=== PATIENT | male | born 1995 | race Caucasian/White ===

== ENCOUNTER 2017-08-29 00:19 | Emergency (ER) | payer BC, OTHER ==
[~2017-08-29] VITALS: Ht 185.4 cm; Wt 120.1 kg
[2017-08-29 00:22] VITALS: TEMP 36.8; Ht 185.4 cm; Wt 120.1 kg
[2017-08-29] MEDS ORDERED: DiphenhydrAMINE HCL 50 MG/ML VIAL IV STA (00:27)
[2017-08-29] MEDS ORDERED: FAMOTIDINE 20MG/5ML IV PUSH IV STA (00:27)
[2017-08-29] MEDS ORDERED: DEXAMETHASONE **PF** INJ 10 MG/ML VIAL IV ONE (00:30)
[2017-08-29 00:38] VITALS: O2SAT 98
[2017-08-29] MEDS ORDERED: ISOT1CAP7 PO (00:41)
--- NOTE | 2017-08-29 01:16 | EMERGENCY ROOM VISIT NOTE ---
History First contact with patient: 00:24 Chief Complaint: ALLERGIC REACTION Stated Complaint: ALLERGIC REACTION Nursing Triage Summary: Patient reports bilateral eye swelling that began approx 30 mins ago. Denies new food, medicine, or soaps. Denies shortness of breath or difficulty breathing. History of Present Illness The patient is a 22 year old male who presents to the Emergency Room with complaints of allergic reaction for the past hour. Patient complains of facial itching and swelling. No new food soaps or detergents.. Patient denies chest pain, dyspnea, throat tightness, tongue swelling, abdominal pain, vomiting, diarrhea. No history of similar symptoms in the past. No eye pain. Review of Systems An 10 system review of systems was completed with positives and pertinent negatives listed in the HPI. Past Medical/Surgical History Medical Problems: (1) adenoidectomy (2) Benign hypertension (3) Hydrocele of testis Family History FH: cancer FH: diabetes mellitus FH: gallbladder disease FH: heart disease FH: lung disease Social History Smoking Status: Never Smoker Alcohol Use: none Drug Use: none Marital Status: single Housing Status: lives with family Occupation Status: employed Current/Historical Medications Scheduled Isotretinoin (Myorisan), 40 MG PO BID Prednisone (Prednisone), 50 MG PO DAILY Physical Exam Vital Signs Date Time Temp Pulse Resp B/P (MAP) Pulse Ox O2 Delivery O2 Flow Rate FiO2 08/29/17 00:42 80 08/29/17 00:38 98 Room Air 08/29/17 00:38 98 Room Air 08/29/17 00:22 36.8 87 20 152/87 98 Room Air Physical Exam VITALS: Vitals are noted on the nurse's note and reviewed by myself. Vital signs hypertensive. GENERAL: Pleasant male, in no acute distress, nondiaphoretic, well-developed well-nourished. SKIN: Arms and face slightly erythematous that is blanchable most consistent with allergic reaction. The rest of the skin was without rashes, erythema, edema, or bruising. There is no tenting of the skin. Capillary reflex less than 2 seconds. HEAD: Normocephalic atraumatic. Face: Periorbital edema and erythema EARS: External auditory canals clear, tympanic membranes pearly elder without erythema or effusion bilaterally. EYES: Pupils equal round and reactive to light and accommodation. Conjunctivae without injection, sclerae without icterus. Extraocular movements intact. NOSE: Patent, turbinates without inflammation or discharge. MOUTH: Mucous membranes moist. Pharynx without erythema or exudate. Uvula midline. Airway patent. Tongue does not deviate. NECK: Supple without nuchal rigidity. No lymphadenopathy. No thyromegaly. Cervical spine is nontender. No JVD. HEART: Regular rate and rhythm without murmurs gallops or rubs. LUNGS: Clear to auscultation bilaterally without wheezes, rales or rhonchi. No retractions or accessory muscle use. ABDOMEN: Positive bowel sounds x 4. Normal tympanic percussion. Soft, nontender, without masses or organomegaly. Robert sign negative. No guarding or rebound tenderness. No CVA tenderness MUSCULOSKELETAL: No muscle atrophy, erythema, or edema noted. NEURO: Patient was alert and oriented to person place and time. Normal sensation to light and sharp touch. No focal neurological deficits. Medical Decision & Procedures Medications Administered Medications (Trade) Dose Ordered Sig/Elysia Route Start Time Stop Time Status Last Admin Dose Admin Dexamethasone Sodium Phosphate (Dexamethasone Inj Pf) 10 mg NOW ONCE IV 08/29/17 00:30 08/29/17 00:31 DC 08/29/17 00:38 10 MG Diphenhydramine HCl (Benadryl Inj) 50 mg NOW STAT IV 08/29/17 00:27 08/29/17 00:29 DC 08/29/17 00:38 50 MG Famotidine (Pepcid 20mg Iv Push) 20 mg ONE STAT IV 08/29/17 00:27 08/29/17 00:29 DC 08/29/17 00:38 20 MG ED Course Prior records/ancillary studies reviewed. Triage Nursing notes reviewed. Additional history obtained from family. The patient's history was concerning for possible allergic reaction. Differential diagnosis: Etiologies such as allergic reaction, anaphylaxis, urticaria, Leblanc-Ashish syndrome, toxic epidermal necrolysis, erythema multiforme, cellulitis, as well as others were entertained. Physical examination: As above. ER treatment provided: Continuous cardiac monitoring Benadryl 50 mg IV Pepcid 20 mg IV Decadron 10 mg IV On reassessment the patient felt better. Diagnostic interpretation by me: Deferred It appears the patient had an allergic reaction. The above treatment did well to reverse the symptoms. After prolonged monitoring and frequent reassessments the patient did very well and symptoms resolved. The patient was counseled on the spectrum of this disease process and told to avoid potential triggers. I gave my usual and customary discussion regarding this issue. By the evaluation outlined above emergent etiologies such as recurring anaphylaxis, anaphylatic shock, airway compromise, Leblanc-Ashish syndrome, toxic epidermal necrolysis, erythema multiforme, infectious etiologies, as well as others were deemed relatively unlikely. The pt informed about the findings as listed above. All questions were answered and pleased with the treatment. Return instructions were outlined and the patient was discharged in stable condition. Mother states she has an EpiPen at home and does not need anyone. Outpatient prescription management: prednisone Referral: The patient was referred back to primary care physician for follow-up in 2-3 days for a recheck of the current condition. or The patient was referred to Allergy/Immunology for further evaluation. The chart was completed utilizing [employer] Speech voice recognition software. Grammatical errors, random word insertions, pronoun errors, and incomplete sentences are an occassional consequence of this system due to software limitations, ambient noise, and hardware issues. Any formal questions or concerns about the content, text, or information contained within the body of this dictation should be directly addressed to the physician preschool assistant for clarification. Medical Decision As above Medication Reconcilliation Current Medication List: was personally reviewed by me Blood Pressure Screening Patient's blood pressure: Elevated blood pressure Blood pressure disposition: Elevated BP felt to be situational Impression Primary Impression: Allergic reaction Departure Information Dispostion Home / Self-Care Condition GOOD Prescriptions Prednisone (Prednisone) 50 Mg Tab 50 MG PO DAILY for 4 Days, #4 TAB Prov: Nidhi Hinojosa .ISACC 08/29/17 Referrals Alyse Jacobo D.O. (PCP) Patient Instructions My [facility] Additional Instructions DO NOT drive, drink alcohol, operate machinery, or perform dangerous activities today. You were given medications in the ER that can affect your ability to safely function or operate a vehicle. Epi-Pen: Use one injection as instructed for severe allergic reactions associated with shortness of breath, difficulty breathing, or throat or tongue swelling. If you use this injection call 911 or proceed immediately to the nearest Emergency Room. Prednisone 50mg: Once daily until the prescription is finished. It is best to take this earlier in the day as some patients note occasional difficulty falling asleep when taken in the late evening. Diphenhydramine(Benadryl) 25mg: use 25 to 50 mg every six hours for swelling, itching, or hives. This medication is sedating and will cause drowsiness. Avoid alcohol, operating machinery or dangerous equipment, working on ladders or roofs, DRIVING, or situations where being under the influence may be dangerous. Zantac 75: Take two pills twice a day along with Benadryl as needed for swelling , itching, or hives. Most people know this for its affect on the stomach, but it also acts similar to, but less potent than Benadryl for allergic reactions. Both the Benadryl and the Zantac are available [id number]. Continue current medications. Return to the emergency department for worsening of your rash, swelling of your face, lips, tongue, or throat, difficulty breathing, vomiting, or as needed. Follow-up with your primary care physician in 2 to 3 days for a recheck of your current condition. Problem Qualifiers Primary Impression: Allergic reaction Encounter type: initial encounter Qualified Codes: T78.40XA - Allergy, unspecified, initial encounter
[2017-08-29] MEDS ORDERED: PRED50TA PO (01:17)
[2017-08-29 01:34] VITALS: BP 147/71; PULSE 68; O2SAT 99
== END 2017-08-29 01:30 | disposition home or self-care (01) ==
LOC: C.EDB 00:21
DX: T78.40XA Allergy, unspecified, initial encounter (principal); X58.XXXA Exposure to other specified factors, initial encounter; I10 Essential (primary) hypertension; Z79.899 Other long term (current) drug therapy

== ENCOUNTER 2018-01-06 08:53 | Emergency (ER) | payer OTHER ==
[~2018-01-06] VITALS: Ht 185.4 cm; Wt 112.0 kg
[~2018-01-06 08:53] MED LIST: ISOT1CAP7 PO
[2018-01-06 08:55] VITALS: TEMP 36.8; Ht 185.4 cm; Wt 112.0 kg
[2018-01-06] MEDS ORDERED: GI COCKTAIL PO STA (09:12)
[2018-01-06 09:17] VITALS: O2SAT 97
[2018-01-06 09:23] LABS: BASO % 0.2 %; BASO ABS # 0.02 K/uL (0-0.2); EOS % 2.7 %; EOS ABS # 0.23 K/uL (0-0.5); HEMATOCRIT 43.9 % (42-52); HEMOGLOBIN 15.3 g/dL (14.0-18.0); IG# 0.03 K/uL (0.00-0.02); LYMPH % 24.2 %; LYMPH ABS # 2.04 K/uL (1.2-3.4); MEAN CELL VOLUME 82.1 fL (80-100); MEAN CORPUSCULAR HEMOGLOBIN 28.6 pg (25-34); MEAN CORPUSCULAR HGB CONC 34.9 g/dl (32-36); MONO % 10.5 %; MONO ABS # 0.89 K/uL (0.11-0.59); NEUT ABS # 5.23 K/uL (1.4-6.5); PLATELET COUNT 232 K/uL (130-400); RED CELL DISTRIBUTION WIDTH CV 12.7 % (11.5-14.5); RED CELL DISTRIBUTION WIDTH SD 37.9 fL (36.4-46.3); WHITE BLOOD COUNT 8.44 K/uL (4.8-10.8)
[2018-01-06] MEDS ORDERED: ALUMINUM/MAGNESIUM SUSP 30 ML UDC ONE (09:25)
[2018-01-06] MEDS ORDERED: LIDOCAINE HCL 2% VISC SOLN 20 ML UDC ONE (09:25)
--- NOTE | 2018-01-06 09:27 | EMERGENCY ROOM VISIT NOTE ---
History First contact with patient: 08:58 Chief Complaint: CHEST PAIN Stated Complaint: CHEST PAIN Nursing Triage Summary: patient c/o left sided chest pain for one hr, states "it was 10/10, not its like a five, gabe like a tightness" History of Present Illness The patient is a 22 year old male who presents to the Emergency Room with complaints of "chest pain". Patient states that he awoke today with left-sided chest pain. He notes that it has been about an hour. It was a 10/10 and out it subsided to about a 5. He notes that he did eat food around midnight which was a sandwich. He notes that it is a tightening sensation radiates to both sides of the abdomen and now is quite minimal. He notes he felt this before and notes this and is the worst therefore prompting his arrival here today. He has not tried anything for the pain. No history of sudden in the family or significant cardiac history. Review of Systems A complete 10-point Review of Systems was discussed with the patient, with pertinent positives and negatives listed in the History of Present Illness. All remaining Review of Systems questions can be considered negative unless otherwise specified. Past Medical/Surgical History Medical Problems: (1) adenoidectomy (2) Benign hypertension (3) Hydrocele of testis Family History FH: cancer FH: diabetes mellitus FH: gallbladder disease FH: heart disease FH: lung disease Social History Smoking Status: Never Smoker Alcohol Use: none Drug Use: none Marital Status: single Housing Status: lives with family Occupation Status: employed Current/Historical Medications Scheduled Famotidine (Pepcid), 20 MG PO BID Physical Exam Vital Signs Date Time Temp Pulse Resp B/P (MAP) Pulse Ox O2 Delivery O2 Flow Rate FiO2 01/06/18 12:18 69 20 142/79 98 Room Air 01/06/18 10:25 70 20 136/58 98 Room Air 01/06/18 09:17 97 Room Air 01/06/18 09:07 79 01/06/18 08:55 36.8 71 18 163/91 100 Room Air Physical Exam VITAL SIGNS - Vital signs and nursing notes were reviewed. Stable. Afebrile. GENERAL -22-year-old male appearing his stated age who is in no acute distress. Communicates well with provider and answers questions appropriately. SKIN - Without rashes. No meningeal or petechial rash. HEAD - NC/AT. EYES - PERRL with EOMI bilaterally. Sclera anicteric. EARS - No deformities of external structures noted on gross examination bilaterally. NOSE - Midline and without cyanosis. No epistaxis or purulent drainage noted. MOUTH/OROPHARYNX - Without perioral cyanosis. NECK - Neck with FROM. Supple to palpation. No lymphadenopathy noted. No nuchal rigidity. LUNGS - Chest wall symmetric without accessory muscle use, intercostals retractions, or central cyanosis. Normal vesicular breath sounds CTA B/L. No wheezes, rales, or rhonchi appreciated. CARDIAC - RRR with S1/S2. No murmur, rubs, or gallops appreciated. No reproducible tenderness palpation of the chest. ABDOMEN - Abdominal contour normal without pulsations or visible masses. BS normoactive all four quadrants. No tenderness, palpable masses, hepatosplenomegaly, or ascites noted. EXTREMITIES - No clubbing or peripheral cyanosis. No pretibial edema present. + 5/5 strength noted in UE/LE bilaterally. NEUROLOGIC - Cranial nerves II through XII grossly intact. Sensory intact to light touch throughout. PSYCH - A&O, and cooperates fully with examiner. Pt is very pleasant and interacts well with examiner. Medical Decision & Procedures ER Provider Diagnostic Interpretation: CHEST ONE VIEW PORTABLE CLINICAL HISTORY: 22 years-old Male presenting with chest pain. TECHNIQUE: Portable upright AP view of the chest was obtained. COMPARISON: None. FINDINGS: Cardiomediastinal silhouette normal. No focal opacity. No large effusion or pneumothorax. Osseous structures normal. Upper abdomen normal. IMPRESSION: 1. No acute cardiopulmonary disease. Electronically signed by: Jose Hilliard M.D. 01/06/2018 9:24 AM Dictated Date/Time: 01/06/2018 9:23 AM Laboratory Results 01/06/18 09:15 Red Blood Count 5.35, Mean Corpuscular Volume 82.1, Mean Corpuscular Hemoglobin 28.6, Mean Corpuscular Hemoglobin Concent 34.9, Mean Platelet Volume 10.0, Neutrophils (%) (Auto) 62.0, Lymphocytes (%) (Auto) 24.2, Monocytes (%) (Auto) 10.5, Eosinophils (%) (Auto) 2.7, Basophils (%) (Auto) 0.2, Neutrophils # (Auto ) 5.23, Lymphocytes # (Auto) 2.04, Monocytes # (Auto) 0.89, Eosinophils # (Auto ) 0.23, Basophils # (Auto) 0.02 01/06/18 09:15 Test 01/06/18 09:15 01/06/18 11:22 White Blood Count 8.44 K/uL (4.8-10.8) Red Blood Count 5.35 M/uL (4.7-6.1) Hemoglobin 15.3 g/dL (14.0-18.0) Hematocrit 43.9 % (42-52) Mean Corpuscular Volume 82.1 fL (80-100) Mean Corpuscular Hemoglobin 28.6 pg (25-34) Mean Corpuscular Hemoglobin Concent 34.9 g/dl (32-36) Platelet Count 232 K/uL (130-400) Mean Platelet Volume 10.0 fL (7.4-10.4) Neutrophils (%) (Auto) 62.0 % Lymphocytes (%) (Auto) 24.2 % Monocytes (%) (Auto) 10.5 % Eosinophils (%) (Auto) 2.7 % Basophils (%) (Auto) 0.2 % Neutrophils # (Auto) 5.23 K/uL (1.4-6.5) Lymphocytes # (Auto) 2.04 K/uL (1.2-3.4) Monocytes # (Auto) 0.89 K/uL (0.11-0.59) Eosinophils # (Auto) 0.23 K/uL (0-0.5) Basophils # (Auto) 0.02 K/uL (0-0.2) RDW Standard Deviation 37.9 fL (36.4-46.3) RDW Coefficient of Variation 12.7 % (11.5-14.5) Immature Granulocyte % (Auto) 0.4 % Immature Granulocyte # (Auto) 0.03 K/uL (0.00-0.02) Anion Gap 6.0 mmol/L (3-11) Est Creatinine Clear Calc Drug Dose 161.3 ml/min Estimated GFR () 132.1 Estimated GFR (Non- 114.0 BUN/Creatinine Ratio 8.2 (10-20) Calcium Level 8.9 mg/dl (8.5-10.1) Total Bilirubin 0.6 mg/dl (0.2-1) Aspartate Amino Transf (AST/SGOT) 16 U/L (15-37) Alanine Aminotransferase (ALT/SGPT) 18 U/L (12-78) Alkaline Phosphatase 72 U/L (45-117) Total Creatine Kinase 302 U/L (39-308) Creatine Kinase MB 1.2 ng/ml (0.5-3.6) Creatine Kinase MB Ratio 0.4 (0-3.0) Total Protein 7.5 gm/dl (6.4-8.2) Albumin 3.8 gm/dl (3.4-5.0) Globulin 3.7 gm/dl (2.5-4.0) Albumin/Globulin Ratio 1.0 (0.9-2) Lipase 140 U/L (73-393) Thyroid Stimulating Hormone (TSH) 0.971 uIu/ml (0.300-4.500) Troponin I < 0.015 ng/ml (0-0.045) Medications Administered Medications (Trade) Dose Ordered Sig/Elysia Route Start Time Stop Time Status Last Admin Dose Admin Lidocaine HCl (Viscous Lidocaine 2% Soln) 20 ml STK-MED ONCE .ROUTE 01/06/18 09:25 01/06/18 09:26 DC 01/06/18 09:27 20 ML Al Hydroxide/Mg Hydroxide (Maalox Susp) 30 ml STK-MED ONCE .ROUTE 01/06/18 09:25 01/06/18 09:26 DC 01/06/18 09:27 30 ML Medical Decision Patient was seen and evaluated as above in room a 9. Review was performed of nursing notes and vital signs. After obtaining a thorough history and physical examination the above work up was performed. He presents to us today with chest pain. It is low in the chest and nearly the epigastric region. Per history this sounds more like reflux. I did elect to obtain a bedside EKG which per my interpretation reveals normal sinus rhythm, rate of 73 bpm. On this examination there is no evidence of [place] or PE. No ST segment elevation. Troponin negative 2. He was given a GI cocktail and nearly immediately had complete resolution of his symptoms. This also includes to reflux. He was stable throughout his stay here. In review of his labs, there is no concerning leukocytosis, anemia, or metabolic concern. Chest x-ray negative. He was stable throughout his stay. He was educated upon importance of follow-up with the family doctor which she is to do soon as possible or return with worsening. I do not suspect ACS or concerning cardiac event. The patient was educated upon management, educated upon todays findings/results, educated upon symptoms in which to return, had questions answered prior to discharge, and was discharged home in good condition. He will be started upon Pepcid for the reflux. Case was discussed with the attending physician. In the evaluation and treatment of this patient the following differential diagnoses were entertained: [place], PE, reflux, pericarditis, costal chondritis, among others. Impression Primary Impression: Chest pain Additional Impression: Acid reflux Departure Information Dispostion Home / Self-Care Condition GOOD Prescriptions Famotidine (PEPCID) 20 Mg Tab 20 MG PO BID, #90 TAB Prov: Guy Woody PA-C 01/06/18 Referrals Alyse Jacobo D.O. (PCP) Patient Instructions My [facility] Additional Instructions You have been treated in the Emergency Department your chest pain which I believe is coming from acid reflux. Laboratory results and imaging studies have helped rule out any emergent causes for your chest pain for further evaluation and management. Recommend Pepcid, 1 tablet every 12 hours. This is to help with the reflux. This is for 6 weeks. Please follow-up with the family doctor I given them a call later today. Please no strenuous activity until you follow-up with the family doctor. Please do not eat spicy foods. You may elevate your bed by placing a second pillow underneath her head to sleep that may help with reflux. Please do not eat food shortly before going to bed. For pain control, you can use the following [id number] medicines (if >12 yo): - Regular strength (325mg/tab) Tylenol (acetaminophen) 2 tabs every 4-6 hours as needed. Do not exceed 12 tablets in a 24 hour period. Avoid taking more than 3 grams (3000 mg) of Tylenol per day. This includes any other sources of acetaminophen you may take on a regular basis. Drink plenty of water and stay well hydrated. As with any trip to the Emergency Department, you should follow-up with your Primary Care Provider from today's visit. Return to the emergency department if your symptoms persist despite treatment plan outlined above or any new/concerning symptoms. Problem Qualifiers
[2018-01-06 09:50] LABS: ALBUMIN 3.8 gm/dl (3.4-5.0); ALKALINE PHOSPHATASE 72 U/L (45-117); ALT/SGPT 18 U/L (12-78); AST/SGOT 16 U/L (15-37); BLOOD UREA NITROGEN 8 mg/dl (7-18); CALCIUM 8.9 mg/dl (8.5-10.1); CARBON DIOXIDE 26 mmol/L (21-32); CKMB 1.2 ng/ml (0.5-3.6); CREATININE 0.95 mg/dl (0.60-1.40); GLUCOSE 89 mg/dl (70-99); LIPASE 140 U/L (73-393); POTASSIUM 3.9 mmol/L (3.5-5.1); SODIUM 136 mmol/L (136-145); TOTAL PROTEIN 7.5 gm/dl (6.4-8.2)
[2018-01-06] MEDS ORDERED: FAMO20TA9 PO (12:04)
[2018-01-06 12:18] VITALS: BP 142/79; PULSE 69; O2SAT 98
== END 2018-01-06 12:22 | disposition home or self-care (01) ==
LOC: C.EDB 08:53 → C.EDA 12:22
DX: R07.9 Chest pain, unspecified (principal); K21.9 Gastro-esophageal reflux disease without esophagitis; I10 Essential (primary) hypertension; Z83.3 Family history of diabetes mellitus; Z82.49 Family history of ischemic heart disease and other diseases of the circulatory system; Z83.79 Family history of other diseases of the digestive system; Z83.6 Family history of other diseases of the respiratory system